=== PATIENT | male | born 1965 | race Hispanic/Latino ===

== ENCOUNTER 2019-05-07 13:21 | Emergency (ER) | payer SELFPAY ==
[~2019-05-07] VITALS: Ht 175.3 cm; Wt 127.9 kg
[~2019-05-07 13:21] MED LIST: ASPIRIN325 MG PO; CARVEDILOL3.125 MG PO; IBUPROFEN PO; LABETALOL HCL100 MG PO; LEVAQUIN500 MG PO; NICOTINE PATCH1 EAC5 TD; NIFEDIPINE ER30 M1 PO; PEPCID20 MG PO; PRAVASTATIN SOD40 MG PO; SIMVASTATIN20 MG PO; VICODIN ES 7.51 EACH
[2019-05-07 14:16] LABS: BASOPHILS % 0.4 % (0.0-1.0); EOSINOPHILS # (AUTO) 0.5 (0.0-0.4); EOSINOPHILS % 4.8 % (0.0-6.0); HEMATOCRIT 42.1 % (38.2-49.6); HEMOGLOBIN 14.2 g/dL (14.0-18.0); LYMPHOCYTES # (AUTO) 3.5 (1.0-3.2); MEAN CORPUSCULAR HEMOGLOBIN 30.2 pg (28-32); MEAN CORPUSCULAR HGB CONC 33.7 g/dL (31-35); MEAN CORPUSCULAR VOLUME 89.6 fL (81-99); MONOCYTES # (AUTO) 0.8 (0.2-0.8); MONOCYTES % 7.2 % (4.4-11.3); NEUTROPHILS % 55.3 % (38.7-80.0); PLATELET COUNT 280 x10e3/uL (140-360); RED CELL DISTRIBUTION WIDTH 13.8 % (11.7-14.4)
[2019-05-07 14:28] LABS: INR 0.97; PROTHROMBIN TIME 13.5 seconds (11.9-14.5)
[2019-05-07 14:37] LABS: ALANINE AMINOTRANSFERASE 24 IU/L (0-55); ALBUMIN 3.9 g/dL (3.5-5.0); ALBUMIN/GLOBULIN RATIO 1.3 (0.8-2.0); ALKALINE PHOSPHATASE 85 IU/L (40-150); ANION GAP 13.9 mmol/L (8-16); BLOOD UREA NITROGEN 17 mg/dL (7-26); BUN/CREATININE RATIO 18 (6-25); CALCIUM 9.6 mg/dL (8.4-10.2); CARBON DIOXIDE 22 mmol/L (22-29); CHLORIDE 107 mmol/L (98-107); CREATINE KINASE 139 IU/L (30-200); CREATININE, SERUM 0.96 mg/dL (0.72-1.25); EST GLOMERULAR FILTRATION RATE > 60 ML/MIN (60-); GLUCOSE 86 mg/dL (74-118); POTASSIUM 3.9 mmol/L (3.5-5.1); SODIUM 139 mmol/L (136-145)
[2019-05-07 15:14] LABS: AMPHETAMINES SCREEN,URINE NEGATIVE (NEGATIVE); BENZODIAZEPINES SCREEN,URINE NEGATIVE (NEGATIVE); PHENCYCLIDINE SCREEN,URINE NEGATIVE (NEGATIVE)
--- NOTE | 2019-05-07 16:48 | Diagnostic Imaging Report ---
History:Left-sided numbness Comparison studies:CT head 04/19/2012 Technique: Axial images were obtained from the skull base to the vertex. Coronal and sagittal images reconstructed from the axial data. Intravenous contrast: None Dose modulation, iterative reconstruction, and/or weight based adjustment of the mA/kV was utilized to reduce the radiation dose to as low as reasonably achievable. Findings: Scalp/skull: No abnormalities. Extra-axial spaces: No masses. No fluid collections. Brain sulci: Mildly prominent. Ventricles: Age-appropriate. Mild effacement of the right lateral ventricle superior aspect. No hydrocephalus. Parenchyma: Subcortical white matter hypodensity at the right superior frontal and precentral gyri with mild mass effect, concerning for vasogenic edema. scattered small hypodensities in the supratentorial white matter are small vessel ischemic changes. 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 Sellar/suprasellar region: No abnormalities. Craniocervical junction: Patent foramen magnum. No Chiari one malformation. Incidental findings: Atherosclerotic calcifications in the carotid siphons . Impression: Right superior frontal and precentral gyri vasogenic edema, underlying lesion is suspected, recommend MRI of the brain with and without contrast Chronic findings: 1. Mild generalized volume loss. 2. Mild supratentorial white matter small vessel ischemic changes. The above finding was reported and acknowledged by Dr. Faustin at 4:44 PM 05/07/2019. Signed by: DR Dinh Garcia M.D. on 05/07/2019 4:46 PM
[2019-05-07] MEDS: FOSPHENYTOIN 500 MG in SODIUM CHLORIDE 0.9% 50ML 50 ML IV ONE (18:21)
[2019-05-07] MEDS: DEXAMETHASONE SOD PHOS 10 MG/1 ML VIAL IV ONE (18:21)
[2019-05-07] MEDS: ACETAMINOPHEN 325 MG TAB PO ONE (18:22)
[2019-05-07] MEDS: LORAZEPAM INJ 2 MG/ML VIAL IV ONE (19:13)
--- NOTE | 2019-05-07 20:10 | NUR ---
Report to EMS at this time.
== END 2019-05-07 20:20 | disposition short-term general hospital (02) ==
LOC: ER 13:21
DX: R22.0 Localized swelling, mass and lump, head (principal); G06.0 Intracranial abscess and granuloma; R20.2 Paresthesia of skin; R20.0 Anesthesia of skin; Z86.73 Personal history of transient ischemic attack (TIA), and cerebral infarction without residual deficits
CPT/HCPCS: 36415; 70450; 80053; 80307; 82550; 82553; 84484; 85025; 85610; 85730; 93005; 99284; J1100; J2060; Q2009